=== PATIENT | female | born 1995 | race Hispanic/Latino ===

== ENCOUNTER 2021-10-31 13:34 | Emergency (ER) | payer OTHER ==
[2021-10-31 14:34] LABS: Urine Blood Negative (Negative); Urine Glucose Negative (Negative); Urine Protein Negative (Negative); Urine Specific Gravity >=1.030 (1.005-1.030); Urine pH 8.5 (5.0-7.0)
--- NOTE | 2021-10-31 14:34 | RAD REPORT ---
EXAM DESCRIPTION: CT - Head Brain Wo Cont - 10/31/2021 2:03 pm CLINICAL HISTORY: left sided headache COMPARISON: No comparisons TECHNIQUE: Axial 5 mm thick images of the head were obtained without IV contrast. All CT scans are performed using dose optimization technique as appropriate and may include automated exposure control or mA/KV adjustment according to patient size. FINDINGS: No intracranial hemorrhage, mass, edema or shift of mid-line structures. No acute infarcti on changes seen. No abnormal extra-axial fluid collections. Ventricles are normal. Mastoid air cells and visualized portions of the paranasal sinuses are clear. No acute bony findings. IMPRESSION: Negative non-contrast CT head examination.
[2021-10-31] MEDS ORDERED: DIPHENHYDRAMINE 50 MG/ML VIAL ONE (14:48)
[2021-10-31] MEDS ORDERED: NA CHLORIDE 0.9% 500 ML ONE (14:48)
[2021-10-31] MEDS ORDERED: METOCLOPRAMIDE 10 MG/2mL INJ ONE ×2 (14:48)
[2021-10-31] MEDS ORDERED: dexAMETHasone 10 MG/ML VIAL ONE (14:48)
--- NOTE | 2021-10-31 16:20 | ER ---
Nurse's Notes [facility] Name: Nayeli Whitlock Age: 26 yrs Sex: Female : 1995 Arrival Date: 10/31/2021 Time: 13:35 Bed Waiting Private MD: Diagnosis: Headache Presentation: 10/31 14:25 Chief complaint: Patient states: Right sided headache since 10. Pt reports history of ld1 headaches. Coronavirus screen: At this time, the client does not indicate any symptoms associated with coronavirus-19. Ebola Screen: No symptoms or risks identified at this time. Initial Sepsis Screen: Does the patient meet any 2 criteria? No. Patient's initial sepsis screen is negative. Does the patient have a suspected source of infection? No. Patient's initial sepsis screen is negative. Risk Assessment: Do you want to hurt yourself or someone else? Patient reports no desire to harm self or others. 14:25 Method Of Arrival: Ambulatory ld1 14:25 Acuity: MARISA 3 ld1 Triage Assessment: 14:27 Headache History: The patient has had previous headaches and this one is similar to ld1 previous episodes. General: Appears in no apparent distress. comfortable, Behavior is calm, cooperative, appropriate for age. Pain: Complains of pain in face Pain does not radiate. Pain currently is 4 out of 10 on a pain scale. Quality of pain is described as throbbing, Pain began 2 hours ago. Is continuous. EENT: No signs and/or symptoms were reported regarding the EENT system. Neuro: Level of Consciousness is awake, alert, obeys commands, Oriented to person, place, time, situation. Cardiovascular: Capillary refill < 3 seconds Patient's skin is warm and dry. Respiratory: Airway is patent Respiratory effort is even, unlabored. GI: Abdomen is round non-distended. : No signs and/or symptoms were reported regarding the genitourinary system. Derm: No signs and/or symptoms reported regarding the dermatologic system. Musculoskeletal: No signs and/or symptoms reported regarding the musculoskeletal system. 16:00 Pain: Also complains of no other associated symptoms. 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 - Social history:: Smoking status: Patient denies any tobacco usage or history of. Patient/guardian denies using alcohol. Screenin:55 Abuse screen: Denies threats or abuse. Denies injuries from another. Nutritional iw screening: No deficits noted. Tuberculosis screening: No symptoms or risk factors identified. Fall Risk None identified. Assessment: 16:00 General: Appears in no apparent distress. Behavior is calm, cooperative. Pain: iw Complains of pain in left latter day and face. Neuro: Level of Consciousness is awake, alert, obeys commands, Oriented to person, place, time, situation. Cardiovascular: Patient's skin is warm and dry. Respiratory: Respiratory effort is even, unlabored, Respiratory pattern is regular. Derm: Skin is intact, is healthy with good turgor. Musculoskeletal: Range of motion: intact in all extremities. Vital Signs: 14:25 BP 138 / 94; Pulse 83; Resp 18; Temp 97.2(O); Pulse Ox 97% on R/A; Weight 108.86 kg; ld1 Height 5 ft. 6 in. (167.64 cm); Pain 4/10; 14:25 Body Mass Index 38.74 (108.86 kg, 167.64 cm) ld1 ED Course: 13:35 Patient arrived in ED. am2 13:35 Chace Brambila PA is PHCP. [facility] 13:35 Sukhdev Encarnacion DO is Attending Physician. [facility] 14:06 CT Head Brain wo Cont In Process Unspecified. EDMS 14:15 Influenza Screen (a \\T\\ B) Sent. 3 14:15 SARS-COV-2 RT PCR (Document "Date of Onset" if Symptomatic) Sent. eh3 14:27 Triage completed. ld1 14:27 Arm band placed on right wrist. ld1 14:34 Bria Freeman, [place] is Primary Nurse. eh3 14:35 Influenza Screen (a \\T\\ B) Sent. eh3 14:45 Inserted saline lock: 20 gauge in right antecubital area, using aseptic technique. eh3 Blood collected. 15:11 SARS-COV-2 RT PCR (Document "Date of Onset" if Symptomatic) Sent. eh3 15:11 Patient has correct armband on for positive identification. Bed in low position. Call eh3 light in reach. Side rails up X2. Door closed. Noise minimized. Lights dimmed. 16:55 No provider procedures requiring assistance completed. IV discontinued, intact, iw bleeding controlled, No redness/swelling at site. Pressure dressing applied. Administered Medications: 14:50 Drug: NS 0.9% 500 ml Route: IV; Rate: bolus; Site: right antecubital; eh3 14:50 Drug: Reglan (metoCLOPramide) 20 mg Route: IVP; Site: right antecubital; eh3 15:33 Follow up: Response: Marked relief of symptoms; Pain is decreased eh3 14:50 Drug: diphenhydrAMINE 12.5 mg Route: IVP; Site: right antecubital; eh3 15:33 Follow up: Response: Marked relief of symptoms; Pain is decreased eh3 14:50 Drug: Decadron - Dexamethasone 10 mg Route: IVP; Site: right antecubital; eh3 15:32 Follow up: Response: Marked relief of symptoms; Pain is decreased eh3 Outcome: 16:19 Discharge ordered by MD. fajardo 16:55 Discharged to home ambulatory. iw 16:55 Condition: good 16:55 Discharge instructions given to patient. 16:56 Patient left the ED. Signatures: Dispatcher [employer] EDMS Chace Brambila PA PA jmm Williams, Irene, RN RN iw Sydnie Holly am2 Julianne Packer RN RN ld1 Bria Freeman RN RN eh3 Corrections: (The following items were deleted from the chart) 15:12 15:12 Inserted saline lock: 20 gauge in right antecubital area, using aseptic 3 technique. Blood collected. eh3
--- NOTE | 2021-10-31 16:20 | EDPHYS ---
Physician Documentation [facility] Name: Nayeli Whitlock Age: 26 yrs Sex: Female : 1995 Arrival Date: 10/31/2021 Time: 13:35 Bed Waiting Private MD: ED Physician Sukhdev Encarnacion HPI: 10/31 16:16 This 26 yrs old Female presents to ER via Ambulatory with complaints of jmm Headache. 16:16 The patient complains of pain to the left christian. Onset: The symptoms/episode jmm began/occurred gradually, 1 week(s) ago. Associated signs and symptoms: Pertinent negatives: fever. This is a 26-year-old female with no chronic medical conditions presents emerged department with complaints of left-sided headache. Patient states having a few episodes of vomiting last week but attributes this to a stomach virus. Patient has had similar headaches in the past but none of the last as long as this episode. Denies fever, neck stiffness. Pain was gradual onset. [employer]: 14:27 LMP N/A - control method ld1 Historical: - Allergies: 14:27 No Known Allergies; ld1 - PMHx: 14:27 None; ld1 - PSHx: 14:27 None; ld1 - Immunization history:: Adult Immunizations up to date, Client reports receiving the 2nd dose of the Covid vaccine. - Social history:: Smoking status: Patient denies any tobacco usage or history of. Patient/guardian denies using alcohol. ROS: 16:16 Constitutional: Negative for fever, chills, and weight loss, Cardiovascular: Negative jmm for chest pain, palpitations, and edema, Respiratory: Negative for shortness of breath, cough, wheezing, and pleuritic chest pain. 16:16 Neuro: Positive for headache. 16:16 All other systems are negative. Exam: 16:16 Constitutional: This is a well developed, well nourished patient who is awake, alert, jmm and in no acute distress. Head/Face: atraumatic. Eyes: EOMI, no conjunctival erythema appreciated ENT: Moist Mucus Membranes Neck: Trachea midline, Supple Chest/axilla: Normal chest wall appearance and motion. Cardiovascular: Regular rate and rhythm. No edema appreciated Respiratory: Normal respirations, no respiratory distress appreciated Abdomen/GI: Non distended Back: Normal ROM Skin: General appearance color normal MS/ Extremity: Moves all extremities, no obvious deformities appreciated, no edema noted to the lower extremities 16:16 Neuro: Orientation: is normal, Mentation: is normal, Memory: is normal. 16:16 Psych: Behavior/mood is pleasant, cooperative. Vital Signs: 14:25 BP 138 / 94; Pulse 83; Resp 18; Temp 97.2(O); Pulse Ox 97% on R/A; Weight 108.86 kg; ld1 Height 5 ft. 6 in. (167.64 cm); Pain 4/10; 14:25 Body Mass Index 38.74 (108.86 kg, 167.64 cm) ld1 MDM: 13:54 Patient medically screened. [facility] 16:18 Data reviewed: vital signs, nurses notes. Counseling: I had a detailed discussion with scotty the patient and/or guardian regarding: the historical points, exam findings, and any diagnostic results supporting the discharge/admit diagnosis, radiology results, the need for outpatient follow up, to return to the emergency department if symptoms worsen or persist or if there are any questions or concerns that arise at home. ED course: Pain is alleviated in the ED. Patient states feeling much better. CT was negative. Patient is alert nontoxic in appearance.. 10/31 13:55 Order name: SARS-COV-2 RT PCR (Document "Date of Onset" if Symptomatic); Complete Time: [facility] 15:40 10/31 13:55 Order name: Influenza Screen (a \\T\\ B); Complete Time: 14:57 [facility] 10/31 13:55 Order name: CT Head Brain wo Cont; Complete Time: 14:57 [facility] 10/31 14:35 Order name: Urine Dipstick-Ancillary; Complete Time: 14:35 [facility] 10/31 13:55 Order name: Saline Lock; Complete Time: 15:11 [facility] 10/31 13:56 Order name: Urine Test (obtain specimen); Complete Time: 14:35 [facility] 10/31 13:56 Order name: Urine Dipstick-Ancillary (obtain specimen); Complete Time: 14:35 [facility] Administered Medications: 14:50 Drug: NS 0.9% 500 ml Route: IV; Rate: bolus; Site: right antecubital; eh3 14:50 Drug: Reglan (metoCLOPramide) 20 mg Route: IVP; Site: right antecubital; eh3 15:33 Follow up: Response: Marked relief of symptoms; Pain is decreased eh3 14:50 Drug: diphenhydrAMINE 12.5 mg Route: IVP; Site: right antecubital; eh3 15:33 Follow up: Response: Marked relief of symptoms; Pain is decreased eh3 14:50 Drug: Decadron - Dexamethasone 10 mg Route: IVP; Site: right antecubital; eh3 15:32 Follow up: Response: Marked relief of symptoms; Pain is decreased eh3 Disposition: 16:20 Co-signature as Attending Physician, Sukhdev Encarnacion DO I agree with the assessment and ms3 plan of care. Disposition Summary: 10/31/21 16:19 Discharge Ordered Location: Home [facility] Condition: Stable jm Diagnosis - Headache jmm Followup: jmm - With: Private Physician - When: 2 - 3 days - Reason: Recheck today's complaints, Continuance of care, Re-evaluation by your physician Discharge Instructions: - Discharge Summary Sheet [facility] - General Headache Without Cause [facility] Forms: - Medication Reconciliation Form [facility] - Thank You Letter [facility] - Antibiotic Education jmm - Prescription Opioid Use [facility] Signatures: Dispatcher [employer] Chace Frank PA PA jmm Sims, Marcus, DO DO ms3 Julianne Packer, RN RN ld1 Bria Freeman RN RN eh3
[2021-10-31 17:59] VITALS: BP 138/94; TEMP 97.2; O2SAT 97
== END 2021-10-31 16:56 | disposition home or self-care (01) ==
LOC: ER 13:34
DX: R51.9 Headache, unspecified (principal); Z20.822 Contact with and (suspected) exposure to COVID-19
CPT/HCPCS: 81003; 87804 ×2; 70450; 96375; 96374; 99284; J2765 ×2; U0003; J1200; J1100; J7040